=== PATIENT | female | born 1995 | race Caucasian/White ===

== ENCOUNTER 2023-03-19 00:55 | Emergency (ER) | payer BC, SELFPAY ==
--- NOTE | ~2023-03-19 | US_ITS ---
Pelvic ultrasound. Clinical History: First trimester , pelvic pain Technique: Realtime transabdominal and transvaginal scanning of the pelvis was performed. Color flow Doppler and Doppler spectral analysis were performed. Findings: The uterus is anteverted, and contains a probable early intrauterine gestational sac.. Aver age gestational sac diameter of 6 mm corresponds to an estimated gestational age of 5 weeks 2 days. P robable yolk sac present, without definite pole at this time. The right ovary measures 4.5 x 2.0 x 2.0 cm. No significant right ovarian or adnexal mass is seen. The left ovary measures 4.0 x 1.3 x 1.4 cm. No significant left ovarian or adnexal mass is seen. There is no evidence of free fluid in the cul de sac. Impression: Early intrauterine gestational sac, with estimated gestational age of 5 weeks 2 days based on average sac diameter. Yolk sac present without visible pole, commensurate with the early gestational a ge. Reviewed, dictated and finalized at location . INSPECTION AND REPAIR MANAGER Impression: Early intrauterine gestational sac, with estimated gestational age of 5 weeks 2 days based on average sac diameter. Yolk sac present without visible josue e, commensurate with the early gestational age.
[2023-03-19 00:57] VITALS: BP 132/90; PULSE 88; RESP 15; TEMP 36.6; O2SAT 98
[2023-03-19 05:01] LABS: Basophils Percent Auto 0.4 % (0.2-1.2); Eosinophils Absolute Auto 0.4 K/mm3 (0-0.3); Eosinophils Percent Auto 4.3 % (0-4.4); Hematocrit 42.7 % (37.0-47.0); Immature Granulocyte Absolute 0.05 K/mm3 (0.00-0.031); Immature Granulocyte Percent A 0.6 % (0-0.5); Lymphocytes Absolute Auto 2.71 K/mm3 (0.9-3.2); Lymphocytes Percent Auto 30.1 % (18.3-44.2); Mean Corpuscular HGB Conc 32.8 g/dl (32-36); Mean Corpuscular Hemoglobin 30.5 pg (26-34); Monocytes Absolute Auto 0.8 K/mm3 (0.1-0.6); Monocytes Percent Auto 9.2 % (2.6-8.5); Neutrophils Percent Auto 55.4 % (45.5-73.1); Platelet Count Result 332 k/mm3 (150-375); Red Blood Count 4.59 M/mm3 (4.2-5.4); Red Cell Distribution Width 12.9 % (11.5-14.5)
[2023-03-19 05:11] LABS: Alanine Aminotransferase 23 U/L (6-35); Alkaline Phosphatase 62 U/L (38-126); Anion Gap 7 mmol/L (8-16); Aspartate Amino Transferase 23 U/L (14-36); Bilirubin,Total 0.3 mg/dL (0.2-1.3); Blood Urea Nitrogen 14 mg/dL (7-17); Calcium 9.4 mg/dL (8.4-10.2); Carbon Dioxide 27 mmol/L (22-30); Chloride 104 mmol/L (98-107); Estimated CRCL calculation 124 ml/min; Estimated Glomerular Filt Rate > 60; Glucose 69 mg/dL (65-110); Potassium 4.5 mmol/L (3.4-5.0); Sodium 138 mmol/L (137-145)
[2023-03-19 05:14] LABS: Appearance Urine Cloudy (Clear); Bacteria Urine 1+ /hpf; Bilirubin Urine Negative (Negative); Blood Urine 2+ (Negative); Color Urine Yellow (Yellow); Glucose Urine UA Negative (Negative); Ketones Urine Negative (Negative); Leukocyte Esterase Ur Negative LEU/UL (Negative); Nitrate Urine Negative (Negative); Non Pathogenic Casts 0-2; Protein Urine Negative (Negative); RBC Urine 0-2 /hpf (0-2); Squamous Epithelial Cell Urine Moderate /hpf (Few); Urobilinogen Urine 0.2 mg/dL (<2.0); pH Urine 5.5 (5.0-9.0)
[2023-03-19 05:20] LABS: Add Urine Microscopic? YES
--- NOTE | 2023-03-19 05:23 | ED.GENADULT ---
HPI - General Adult General Chief complaint: Vaginal Bleeding Stated complaint: bleeding-8 weeks Time Seen by Provider: 03/19/23 04:18 History of Present Illness HPI narrative: patient is a 27-year-old female who presents emergency department with chief complaint of vaginal bleeding. Patient reports that her last wrist. Was in December and reports that she recently had a positive test and reports that tonight she knows she had some spotting whenever she went to the bathroom. Also reports it is cramping in her abdomen Related Data Allergies Allergy/AdvReac Type Severity Reaction Status Date / Time No Known Drug Allergies Allergy Unknown Other Verified 03/19/23 01:02 Review of Systems Review of Systems: A 10 system review of systems was completed on the patient and is negative except for what is stated in the HPI. Nursing and ancillary documentation was reviewed. Exam Narrative: GENERAL: Well-appearing, well-nourished, and in no acute distress. HEAD: Normocephalic, atraumatic. EYES: PERRLA and EOMI. ENT: Nares clear, no rhinorrhea or epistaxis. Mucous membranes moist. NECK: Supple. CHEST: Clear to auscultation. No respiratory distress. HEART: Regular rate and rhythm. No murmur heard. Normal peripheral pulses. ABDOMEN: Soft, nontender, nondistended, normal active bowel sounds. EXTREMITIES: Normal range of motion. No edema. SKIN: Warm, dry, no rash. NEURO: No focal deficits. Alert and oriented x3. PSYCH: Normal mood and affect. Course Vital Signs Vital signs: Vital Signs Temperature 97.9 F 03/19/23 00:57 Pulse Rate 88 03/19/23 00:57 Respiratory Rate 15 03/19/23 00:57 Blood Pressure 132/90 03/19/23 00:57 Pulse Oximetry 98 03/19/23 00:57 Oxygen Delivery Room Air 03/19/23 00:57 Temperature 97.9 F 03/19/23 00:57 Pulse Rate 79 03/19/23 05:46 Respiratory Rate 18 03/19/23 05:46 Blood Pressure 113/79 03/19/23 05:46 Pulse Oximetry 99 03/19/23 05:46 Oxygen Delivery Room Air 03/19/23 00:57 Medical Decision Making Vital Signs Vital Signs: Vital Signs Temperature 97.9 F 03/19/23 00:57 Pulse Rate 88 03/19/23 00:57 Respiratory Rate 15 03/19/23 00:57 Blood Pressure 132/90 03/19/23 00:57 Pulse Oximetry 98 03/19/23 00:57 Oxygen Delivery Room Air 03/19/23 00:57 Temperature 97.9 F 03/19/23 00:57 Pulse Rate 79 03/19/23 05:46 Respiratory Rate 18 03/19/23 05:46 Blood Pressure 113/79 03/19/23 05:46 Pulse Oximetry 99 03/19/23 05:46 Oxygen Delivery Room Air 03/19/23 00:57 Lab Data 03/19/23 04:55 03/19/23 04:55 Labs: Lab Results 03/19/23 03/19/23 Range/Units 04:55 04:57 WBC 9.0 (4.5-10.0) K/mm3 RBC 4.59 (4.2-5.4) M/mm3 Hgb 14.0 (12.0-15.0) g/dL Hct 42.7 (37.0-47.0) % MCV 93.0 (80-100) fl MCH 30.5 (26-34) pg MCHC 32.8 (32-36) g/dl RDW 12.9 (11.5-14.5) % Plt Count 332 (150-375) k/mm3 MPV 9.0 (7.4-10.4) fl Immature Gran % (Auto) 0.6 H (0-0.5) % Neut % (Auto) 55.4 (45.5-73.1) % Lymph % (Auto) 30.1 (18.3-44.2) % [place] % (Auto) 9.2 H (2.6-8.5) % Eos % (Auto) 4.3 (0-4.4) % Baso % (Auto) 0.4 (0.2-1.2) % Lymph # (Auto) 2.71 (0.9-3.2) K/mm3 [place] # (Auto) 0.8 H (0.1-0.6) K/mm3 Eos # (Auto) 0.4 H (0-0.3) K/mm3 Baso # (Auto) 0.0 (0.0-0.1) K/mm3 Abs Immat Gran (auto) 0.05 H (0.00-0.031) K/mm3 Absolute Neuts (auto) 5.0 (1.3-6.7) K/mm3 Absolute Nucleated RBC 0.0 (0.0-0.012) K/mm3 Nucleated RBC % 0.0 (0.0-0.2) % Sodium 138 (137-145) mmol/L Potassium 4.5 (3.4-5.0) mmol/L Chloride 104 (98-107) mmol/L Carbon Dioxide 27 (22-30) mmol/L Anion Gap 7 L (8-16) mmol/L BUN 14 (7-17) mg/dL Creatinine 0.70 (0.7-1.0) mg/dL Estim Creat Clear Calc 124 ml/min Estimated GFR > 60 (59 - ) Glucose 69 (65-110) mg/dL Calcium 9.4 (8.4-10.2) mg/dL Total Bilir
[2023-03-19 05:46] VITALS: BP 113/79; PULSE 79; RESP 18; O2SAT 99
[2023-03-19] MEDS: CEPHALEXIN 500 MG CAPSULE PO (07:58)
[2023-03-19 08:31] VITALS: BP 136/74; PULSE 84; RESP 16; O2SAT 99
== END 2023-03-19 08:34 | disposition home or self-care (01) ==
PROVIDERS: Emergency Medicine; Emergency Provider Student in an Organized Health Care Education/Training Program
DX: O20.0 Threatened abortion (principal); Z3A.08 8 weeks gestation of pregnancy; R82.71 Bacteriuria
CPT/HCPCS: 36415; 76801; 76817; 80053; 81001; 81025; 84702; 85025; 85461; 86850; 86900; 86901; 87086; 87088; 99284; A9270

== ENCOUNTER 2023-04-03 14:37 | Outpatient (CLI) | payer BC, SELFPAY ==
--- NOTE | ~2023-04-03 | XR_ITS ---
XR chest 2V DATE: 04/03/2023 15:06 INDICATION: Bilateral wheezing TECHNIQUE: PA and lateral views COMPARISON: None FINDINGS: Normal heart size. No hilar or mediastinal enlargement. No pulmonary infiltrate or consolid ation, pleural effusion or pulmonary vascular congestion or pneumothorax is detected. Included skelet al structures are unremarkable. IMPRESSION: No active cardiopulmonary disease Reviewed, dictated and finalized at location B. OSAL DIRECTOR
== END 2023-04-03 14:38 ==
LOC: MICIMG 14:39
PROVIDERS: PCP Advanced Practice Midwife; Visit Provider Advanced Practice Midwife
DX: R06.2 Wheezing (principal)
CPT/HCPCS: 71046

== ENCOUNTER 2023-10-25 10:25 | Outpatient (CLI) | payer BC, SELFPAY ==
[2023-10-25 10:37] VITALS: BMI 39.2
[2023-10-25 10:49] VITALS: BP 145/87; PULSE 87
[2023-10-25 11:00] VITALS: BP 146/89; PULSE 91
[2023-10-25 11:02] LABS: Basophils Absolute Auto 0.1 K/mm3 (0.0-0.1); Basophils Percent Auto 0.5 % (0.2-1.2); Eosinophils Absolute Auto 0.2 K/mm3 (0-0.3); Hematocrit 32.3 % (37.0-47.0); Hemoglobin 10.8 g/dL (12.0-15.0); Immature Granulocyte Absolute 0.19 K/mm3 (0.00-0.031); Lymphocytes Absolute Auto 1.78 K/mm3 (0.9-3.2); Lymphocytes Percent Auto 18.4 % (18.3-44.2); Mean Corpuscular HGB Conc 33.4 g/dl (32-36); Mean Corpuscular Hemoglobin 31.8 pg (26-34); Monocytes Absolute Auto 0.9 K/mm3 (0.1-0.6); Monocytes Percent Auto 9.7 % (2.6-8.5); Neutrophils Absolute Auto 6.5 K/mm3 (1.3-6.7); Neutrophils Percent Auto 67.4 % (45.5-73.1); Platelet Count Result 229 k/mm3 (150-375); White Blood Count 9.7 K/mm3 (4.5-10.0)
[2023-10-25 11:13] LABS: Alanine Aminotransferase 21 U/L (6-35); Albumin Level 3.5 g/dL (3.5-5.1); Alkaline Phosphatase 88 U/L (38-126); Anion Gap 8 mmol/L (4-12); Aspartate Amino Transferase 28 U/L (14-36); Bilirubin,Total 0.3 mg/dL (0.2-1.3); Blood Urea Nitrogen 10 mg/dL (7-17); Calcium 9.8 mg/dL (8.4-10.2); Carbon Dioxide 27 mmol/L (22-30); Chloride 102 mmol/L (98-107); Estimated Glomerular Filt Rate > 60; Glucose 84 mg/dL (65-110); Potassium 3.5 mmol/L (3.4-5.0); Sodium 137 mmol/L (137-145); Uric Acid 5.8 mg/dL (2.5-7.5)
[2023-10-25 11:15] VITALS: BP 140/79; BP 146/89; PULSE 87; PULSE 89
[2023-10-25 11:34] LABS: Appearance Urine Clear (Clear); Bacteria Urine None Seen /hpf; Bilirubin Urine Negative (Negative); Blood Urine Negative (Negative); Color Urine Yellow (Yellow); Glucose Urine UA Negative (Negative); Ketones Urine Negative (Negative); Leukocyte Esterase Ur Trace LEU/UL (Negative); Nitrate Urine Negative (Negative); Non Pathogenic Casts 0-2; Protein Urine Negative (Negative); RBC Urine 0-2 /hpf (0-2); Specific Grav Ur 1.005 (1.001-1.035); Squamous Epithelial Cell Urine Occasional /hpf (Few); Urobilinogen Urine 0.2 mg/dL (<2.0); WBC Urine 0-5 /hpf (0-3)
[2023-10-25 11:39] LABS: Add Urine Microscopic? YES
[2023-10-25 11:47] LABS: Creatinine Urine 30.1 mg/dL; Total Protein Urine Random 22 mg/dL; Ur Ttl Prot Creatinine Ratio 0.73 mg/mg (0-0.20)
--- NOTE | 2023-10-25 11:53 | PC.NURSE ---
shaquille Schaefer CNM reported BP and PIH lab result. induction was scheduled on saturday.
== END 2023-10-25 12:00 | disposition home or self-care (01) ==
LOC: ANHOBOP 10:28 → ANHOBPP 10:28
PROVIDERS: Visit Provider Advanced Practice Midwife
DX: O13.9 Gestational [pregnancy-induced] hypertension without significant proteinuria, unspecified trimester (principal); Z3A.00 Weeks of gestation of pregnancy not specified
CPT/HCPCS: 36415; 59025; 80053; 81001; 82570; 84156; 84550; 85025; 99199

== ENCOUNTER 2023-10-28 16:51 | Inpatient (IN) | payer BC, SELFPAY ==
[2023-10-28] VITALS (106 sets, daily range): BP systolic 100–158; BP diastolic 56–101; PULSE 68–104; TEMP 36.8–37.1; O2SAT 96–100; BMI 40.7
[2023-10-28 17:40] LABS: Basophils Percent Auto 0.3 % (0.2-1.2); Eosinophils Absolute Auto 0.2 K/mm3 (0-0.3); Eosinophils Percent Auto 2.4 % (0-4.4); Hemoglobin 10.9 g/dL (12.0-15.0); Immature Granulocyte Percent A 2.1 % (0-0.5); Mean Corpuscular HGB Conc 34.1 g/dl (32-36); Mean Corpuscular Hemoglobin 32.1 pg (26-34); Mean Corpuscular Volume 94.1 fl (80-100); Mean Platelet Volume 10.5 fl (7.4-10.4); Monocytes Absolute Auto 0.8 K/mm3 (0.1-0.6); Monocytes Percent Auto 8.4 % (2.6-8.5); Neutrophils Absolute Auto 6.4 K/mm3 (1.3-6.7); Neutrophils Percent Auto 67.8 % (45.5-73.1); Platelet Count Result 225 k/mm3 (150-375); Red Cell Distribution Width 13.2 % (11.5-14.5); White Blood Count 9.5 K/mm3 (4.5-10.0)
[2023-10-28 17:47] LABS: Uric Acid 6.2 mg/dL (2.5-7.5)
--- NOTE | 2023-10-28 17:48 | LDADM ---
This patient, Lisa Herbert, was admitted to Labor/Delivery/Recovery 104 on 10/28/23 at 16:51. Plans for labor, pain management and were discussed with patient. Patient/family oriented to hospital policies and general routines including ID bracelet, bed and alarms, visiting hours, pain management, procedures, bathroom and other care routines, personal items, smoking policy, room service/diet and guest tray routines, security routines, and visiting hours. Patient/Family are encouraged to report perceived risks to care and to ask questions if they do not understand what they are told or what they should do. See OBIX for further documentation.
[2023-10-28 17:49] LABS: Alanine Aminotransferase 22 U/L (6-35); Albumin Level 3.3 g/dL (3.5-5.1); Alkaline Phosphatase 85 U/L (38-126); Anion Gap 11 mmol/L (4-12); Aspartate Amino Transferase 28 U/L (14-36); Bilirubin,Total 0.3 mg/dL (0.2-1.3); Blood Urea Nitrogen 9 mg/dL (7-17); Calcium 9.4 mg/dL (8.4-10.2); Carbon Dioxide 23 mmol/L (22-30); Chloride 101 mmol/L (98-107); Estimated Glomerular Filt Rate > 60; Glucose 113 mg/dL (65-110); Potassium 3.2 mmol/L (3.4-5.0); Sodium 135 mmol/L (137-145)
[2023-10-28 18:06] LABS: Rapid Plasma Reagin Non-Reactive (NonReactive)
[2023-10-28] MEDS: miSOPROStol 25 MCG TABLET 50 MCG BUCCAL ×2 (18:06→22:05)
[2023-10-28 18:35] LABS: HIV 1/2 Ab P24 Ag Result Negative (Negative)
[2023-10-28] MEDS: POTASSIUM CHLORIDE 20 MEQ ER TABLET 40 MEQ PO (19:03)
[2023-10-29] VITALS (363 sets, daily range): BP systolic 81–194; BP diastolic 41–123; PULSE 39–140; TEMP 36.4–37.1; O2SAT 84–100
[2023-10-29] MEDS: miSOPROStol 25 MCG TABLET 50 MCG BUCCAL ×2 (02:01→06:07)
--- NOTE | 2023-10-29 08:18 | PM.IMHP ---
H&P: HPI History of Present Illness Date/Time: 10/29/23 08:18 Chief Complaint: G 1 P0 at 37 weeks gestation.pt here for IOL for preeclampsia with out severe features. denies headache, visual changes, epigastric pain. has been complicated by hypothyroidism, obesity, circumvallate placenta, anemia, asthma. Review of Systems Review of Systems: All systems reviewed & are unremarkable except as noted in HPI and below PMFSH Social History Social History Smoking status: Former smoker Tobacco type: cigarettes Second hand tobacco smoke exposure: Yes Substance use: never Do You Feel Safe in your Home?: Yes Lack of Transportation: No Lack of Food: Never True Current Housing: I Do Not Have Housing Concerned About Future Housing: No Difficulty Paying Gas/Electric Bills: No Difficulty Paying for Meds: No Currently Unemployed: No Education: High School Diploma/GED Difficulty w/ Childcare or Family Care: No Spiritual care concerns: No Meds Home Medications and Allergies Home Medications Medication Instructions Recorded Confirmed Type vit no.95-ferrous 1 tablet PO DAILY #30 tabs 03/19/23 10/18/23 Rx fumarate 28 mg-folic acid 800 mcg tablet ( Multivitamins) docusate sodium 100 mg capsule 100 mg PO DAILY 10/18/23 10/18/23 History (Colace) ferrous sulfate 325 mg (65 mg 325 mg PO DAILY 10/18/23 10/18/23 History iron) tablet levothyroxine 25 mcg tablet 25 mcg PO DAILY 10/18/23 10/18/23 History Allergies Allergy/AdvReac Type Severity Reaction Status Date / Time No Known Drug Allergies Allergy Unknown Other Verified 10/28/23 17:44 Vital Signs Vital Signs - 24 hr 10/28/23 17:16 10/28/23 17:18 10/28/23 17:21 Temperature Pulse Rate 100 Blood Pressure 144/85 H Pulse Oximetry 97 98 Oxygen Delivery 10/28/23 17:26 10/28/23 17:29 10/28/23 17:31 Temperature Pulse Rate 100 Blood Pressure 143/76 H Pulse Oximetry 98 98 Oxygen Delivery 10/28/23 17:34 10/28/23 17:39 10/28/23 17:44 Temperature Pulse Rate Blood Pressure Pulse Oximetry 99 98 98 Oxygen Delivery 10/28/23 17:46 10/28/23 17:49 10/28/23 17:54 Temperature Pulse Rate 97 Blood Pressure 140/91 H Pulse Oximetry 98 98 Oxygen Delivery 10/28/23 17:59 10/28/23 18:01 10/28/23 18:04 Temperature Pulse Rate 91 Blood Pressure 146/87 H Pulse Oximetry 99 98 Oxygen Delivery 10/28/23 18:09 10/28/23 18:12 10/28/23 18:14 Temperature 36.8 C Pulse Rate Blood Pressure Pulse Oximetry 98 97 Oxygen Delivery 10/28/23 18:16 10/28/23 18:19 10/28/23 18:24 Temperature Pulse Rate 98 Blood Pressure 158/85 H Pulse Oximetry 98 98 Oxygen Delivery 10/28/23 18:29 10/28/23 18:31 10/28/23 18:32 Temperature Pulse Rate 93 89 Blood Pressure 133/74 Pulse Oximetry 98 Oxygen Delivery 10/28/23 18:34 10/28/23 18:35 10/28/23 18:39 Temperature Pulse Rate 92 Blood Pressure 133/86 Pulse Oximetry 98 99 Oxygen Delivery 10/28/23 18:44 10/28/23 18:45 10/28/23 18:49 Temperature Pulse Rate 91 Blood Pressure 124/80 Pulse Oximetry 98 100 Oxygen Delivery 10/28/23 18:54 10/28/23 18:59 10/28/23 19:00 Temperature Pulse Rate 91 Blood Pressure 136/86 Pulse Oximetry 99 98 Oxygen Delivery 10/28/23 19:04 10/28/23 19:09 10/28/23 19:15 Temperature Pulse Rate Blood Pressure Pulse Oximetry 99 98 99 Oxygen Delivery 10/28/23 19:20 10/28/23 19:21 10/28/23 19:26 Temperature Pulse Rate Blood Pressure Pulse Oximetry 99 99 98 Oxygen Delivery 10/28/23 19:31 10/28/23 19:36 10/28/23 19:41 Temperature Pulse Rate 87 Blood Pressure 140/84 Pulse Oximetry 98 98 98 Oxygen Delivery 10/28/23 19:46 10/28/23 19:51 10/28/23 19:56 Temperature Pulse Rate 87 Bloo
[2023-10-29] MEDS: LACTATED RINGERS 1,000 ML 125 ML IV CONT ×3 (08:19→15:58)
--- NOTE | 2023-10-29 09:07 | WPDANESEPPF ---
Anes - Initial Pre Proc Eval Procedure: labor epidural Date/Time: 10/29/23 09:07 Surgeon: Lance Henderson MD Pre Op Diagnosis: labor pain Pre Op Diagnosis: IOL Patient Data Age: 28 Gender: F Height: 1.7 m Weight: 118 kg Last Vital Signs Temp 36.6 C 10/29/23 08:22 Pulse 79 10/29/23 09:01 BP 142/89 H 10/29/23 09:01 Pulse Ox 98 10/29/23 09:02 O2 Del Method Room Air 10/28/23 17:45 Allergies Allergy/AdvReac Type Severity Reaction Status Date / Time No Known Drug Allergies Allergy Unknown Other Verified 10/28/23 17:44 Home Medications Medication Instructions Recorded Confirmed Type vit no.95-ferrous 1 tablet PO DAILY #30 tabs 03/19/23 10/18/23 Rx fumarate 28 mg-folic acid 800 mcg tablet ( Multivitamins) docusate sodium 100 mg capsule 100 mg PO DAILY 10/18/23 10/18/23 History (Colace) ferrous sulfate 325 mg (65 mg 325 mg PO DAILY 10/18/23 10/18/23 History iron) tablet levothyroxine 25 mcg tablet 25 mcg PO DAILY 10/18/23 10/18/23 History Laboratory Tests 10/28/23 10/28/23 17:12 17:27 WBC 9.5 K/mm3 (4.5-10.0) RBC 3.40 L M/mm3 (4.2-5.4) Hgb 10.9 L g/dL (12.0-15.0) Hct 32.0 L % (37.0-47.0) MCV 94.1 fl (80-100) MCH 32.1 pg (26-34) MCHC 34.1 g/dl (32-36) RDW 13.2 % (11.5-14.5) Plt Count 225 k/mm3 (150-375) MPV 10.5 H fl (7.4-10.4) Immature Gran % (Auto) 2.1 H % (0-0.5) Neut % (Auto) 67.8 % (45.5-73.1) Lymph % (Auto) 19.0 % (18.3-44.2) [place] % (Auto) 8.4 % (2.6-8.5) Eos % (Auto) 2.4 % (0-4.4) Baso % (Auto) 0.3 % (0.2-1.2) Lymph # (Auto) 1.80 K/mm3 (0.9-3.2) [place] # (Auto) 0.8 H K/mm3 (0.1-0.6) Eos # (Auto) 0.2 K/mm3 (0-0.3) Baso # (Auto) 0.0 K/mm3 (0.0-0.1) Abs Immat Gran (auto) 0.20 H K/mm3 (0.00-0.031) Absolute Neuts (auto) 6.4 K/mm3 (1.3-6.7) Absolute Nucleated RBC 0.000 K/mm3 (0.0-0.012) Nucleated RBC % 0.0 % (0.0-0.2) Sodium 135 L mmol/L (137-145) Potassium 3.2 L mmol/L (3.4-5.0) Chloride 101 mmol/L (98-107) Carbon Dioxide 23 mmol/L (22-30) Anion Gap 11 mmol/L (4-12) BUN 9 mg/dL (7-17) Creatinine 1.00 mg/dL (0.7-1.0) Estim Creat Clear Calc Not Reportable Estimated GFR > 60 (59 - ) Glucose 113 H mg/dL (65-110) Uric Acid 6.2 mg/dL (2.5-7.5) Calcium 9.4 mg/dL (8.4-10.2) Total Bilirubin 0.3 mg/dL (0.2-1.3) AST 28 U/L (14-36) ALT 22 U/L (6-35) Alkaline Phosphatase 85 U/L (38-126) Total Protein 6.0 L g/dL (6.3-8.2) Albumin 3.3 L g/dL (3.5-5.1) RPR Non-reactive (NonReactive) HIV 1&2 Ab/P24 Ag 4thGn Negative (Negative) Blood Type A Positive Antibody Screen Negative Patient hx anesthesia problems: none Family hx anesthesia problems: none Results Review: All pre-operative results and documents have been reviewed as part of the pre-operative evaluation. [facility] Past Medical History Medical History (Updated 10/29/23 @ 09:07 by Lester Dodd DO) Asthma Hypothyroid Social History Social History Smoking status: Former smoker Tobacco type: cigarettes Second hand tobacco smoke exposure: Yes Substance use: never Do You Feel Safe in your Home?: Yes Lack of Transportation: No Lack of Food: Never True Current Housing: I Do Not Have Housing Concerned About Future Housing: No Difficulty Paying Gas/Electric Bills: No Difficulty Paying for Meds: No Currently Unemployed: No Education: High School Diploma/GED Difficulty w/ Childcare or Family Care: No Spiritual care concerns: No Anes - Eval Final PreProcedure Day of Procedure 10/29/23 09:07
[2023-10-29] MEDS: OXYTOCIN 30 UNITS/NS 500 ML 30 UNITS/500 ML BAG IV CONT (18:29)
[2023-10-29] MEDS: ONDANSETRON INJ 4 MG/2 ML VIAL IV PUSH (20:31)
[2023-10-29] MEDS: SODIUM CHLORIDE 0.9% IV 300 ML 600 ML I-UTERINE (21:33)
[2023-10-29] MEDS: CALCIUM CARBONATE (TUMS) 500 MG (200 MG ELEMENTAL) 400 MG PO (21:40)
[2023-10-29] MEDS: OXYTOCIN 30 UNITS/NS 500 ML 30 UNITS/500 ML BAG 999 UNITS IV CONT (22:18)
--- NOTE | 2023-10-29 22:25 | PM.OBPRVD ---
OB - Vaginal Delivery Note Procedure Delivery date: 10/29/23 Events: Preeclampsia w/o severe features Induction method: AROM, Per Misoprostol Protocol and Per Pitocin Protocol Delivery monitor: Internal FHT and Internal Uterine Route of delivery: Episiotomy description: None Laceration Description: None Specimen: Yes Quantitative Blood Loss (ml): 200 Anesthesia type: Epidural Disposition: Floor Complications: No immediate complications Baby Date of : 10/29/23 Time of : 22:17 Gestational Age by Date: 37 gender: Male Weight (pounds): 6 Weight (ounces): 2 presentation: vertex position: Left Occiput Anterior Placenta delivery description: Spontaneous Cord Vessel Description: 3 Vessels, Nuchal Cord (x1), Loose, Reduced and Around Body (x2) score one minute: 9 score five minutes: 9 Narrative: baby to warmer, mother and baby in stable condition
[2023-10-29] MEDS: OXYTOCIN 30 UNITS/NS 500 ML 30 UNITS/500 ML BAG 125 UNITS IV CONT (22:48)
[2023-10-30] VITALS (10 sets, daily range): BP systolic 137–154; BP diastolic 84–99; PULSE 83–104; RESP 16–18; TEMP 36.5–37.6; O2SAT 95–99
[2023-10-30] MEDS: BENZOCAINE 20% AER SPR (*SP) 56 GM CAN 1 SPRAY TOPICAL (01:09)
[2023-10-30] MEDS: WITCH HAZEL 40 PADS 1 PAD TOPICAL (01:10)
--- NOTE | 2023-10-30 04:40 | OBPPTRN ---
Patient transferred to post room #[id number] (wheelchair at [phone] ). Support person present. Oriented to unit, room, information board, rooming in, admission packet and security measures. Patient verbalizes understanding.
[2023-10-30 04:41] LABS: Hemoglobin 10.2 g/dL (12.0-15.0)
--- NOTE | 2023-10-30 07:37 | PM.OBPNVD ---
OB - PN: Subj Subjective Date/time seen: 10/30/23 07:37 Interval history: pp day 1 doing well baby doing well OB - PN: Obj Data Labs 10/30/23 04:22 10/28/23 17:27 Labs: Laboratory Results - last 24 hr 10/30/23 04:22 Hgb 10.2 L Hct 31.0 L OB - PN A/P Plan day: 1 Plan: routine care Time Spent With Patient Time: Total time spent is greater than 50% in coordination of care (as documented) at patient's floor/unit and/or counseling patient: Review of Systems Review of Systems: All systems reviewed & are unremarkable except as noted in HPI and below Exam Const: General: cooperative and healthy appearing Chest: Chest palpation & inspection: normal inspection of the chest Resp: Effort & Inspection: normal respiratory effort Cardio: Rate: regular rate Rhythm: regular rhythm Skin: General skin exam: normal color Neuro: General: patient oriented x3 Extrem: General: normal to inspection
--- NOTE | 2023-10-30 08:15 | PC.NURSE ---
Primary RN requested assistance for patient who is trying to breastfeed. Patient had baby latched to the left breast with the nipple shield. Baby is 37 weeks. He was sleepy so we tried to stimulate him to wake up and suck. Mother states that she could feel him sucking but it did not appear he was giving much effort. Mother states he had already fed for 15 minutes on the right breast. She has been using the nipple shield at every feeding. Patient was educated on the need to pump if using the shield. Mother has her own pump. Mother is going to burp baby and then we will set up her pump and fit her flange size. Mother agrees with this plan.
[2023-10-30] MEDS: MULTIVIT/MIN/PREN/FOL AC/IRON TABLET 1 TAB PO (08:27)
[2023-10-30] MEDS: LEVOTHYROXINE SODIUM 25 MCG TABLET PO (08:27)
--- NOTE | 2023-10-30 08:28 | WPDANLDPN2 ---
Anes-Prog Note L&D Date/Time: 10/30/23 08:28 Comfortable throughout: labor and delivery Neuraxial method: epidural Epidural/Spinal procedure site: clean & non-tender Neuro status: Neuro function grossly intact. Cardiovascular status: normal Respiratory status: normal Airway patency: baseline Mental status: baseline Post-Op hydration status: normal Vital Signs: Last Vital Signs Temp 37.2 C 10/30/23 04:00 Pulse 98 10/30/23 04:00 Resp 17 10/30/23 04:00 BP 145/93 H 10/30/23 04:00 Pulse Ox 98 10/30/23 04:00 O2 Del Method Room Air 10/30/23 04:00 Pain score (VAS): 0/10 I/O: Intake & Output 10/29/23 10/30/23 10/30/23 23:59 07:59 15:59 Intake Total 1000 Output Total 1500 Balance -500 Post-procedural complaints: none Patient feedback: Patient satisfied with anesthetic care.
[2023-10-30 08:44] LABS: Basophils Percent Auto 0.3 % (0.2-1.2); Eosinophils Absolute Auto 0.3 K/mm3 (0-0.3); Hematocrit 32.1 % (37.0-47.0); Immature Granulocyte Absolute 0.16 K/mm3 (0.00-0.031); Immature Granulocyte Percent A 1.1 % (0-0.5); Lymphocytes Absolute Auto 1.81 K/mm3 (0.9-3.2); Lymphocytes Percent Auto 12.7 % (18.3-44.2); Mean Corpuscular HGB Conc 34.3 g/dl (32-36); Mean Corpuscular Hemoglobin 32.6 pg (26-34); Mean Corpuscular Volume 95.3 fl (80-100); Mean Platelet Volume 10.2 fl (7.4-10.4); Monocytes Absolute Auto 1.1 K/mm3 (0.1-0.6); Neutrophils Absolute Auto 10.8 K/mm3 (1.3-6.7); Neutrophils Percent Auto 75.9 % (45.5-73.1); Platelet Count Result 217 k/mm3 (150-375); Red Blood Count 3.37 M/mm3 (4.2-5.4); Red Cell Distribution Width 13.3 % (11.5-14.5); White Blood Count 14.3 K/mm3 (4.5-10.0)
[2023-10-30 08:57] LABS: Alanine Aminotransferase 21 U/L (6-35); Albumin Level 3.2 g/dL (3.5-5.1); Alkaline Phosphatase 88 U/L (38-126); Anion Gap 6 mmol/L (4-12); Aspartate Amino Transferase 31 U/L (14-36); Bilirubin,Total 0.5 mg/dL (0.2-1.3); Blood Urea Nitrogen 9 mg/dL (7-17); Calcium 9.2 mg/dL (8.4-10.2); Carbon Dioxide 27 mmol/L (22-30); Chloride 103 mmol/L (98-107); Estimated CRCL calculation 97 ml/min; Estimated Glomerular Filt Rate > 60; Glucose 76 mg/dL (65-110); Potassium 3.5 mmol/L (3.4-5.0); Sodium 136 mmol/L (137-145); Uric Acid 5.7 mg/dL (2.5-7.5)
--- NOTE | 2023-10-30 10:55 | PC.NURSE ---
0830: Set up mother with her own pump. The pump comes with a 25mm flange and that fit mother well. We looked through the user guide and found the recommended instructions for pump phases. Recommended mother pump for 15 minutes after each feeding since she is using the nipple shield. We discussed cleaning her pump parts, breastmilk use and storage. We also discussed milk production. Mother had a few drops that she placed in baby's mouth. 1055: Mother called out for feeding assistance. She had the nipple shield applied correctly but infant would not open his mouth to latch. We attempted to wake infant by bringing him away from mom and stimulating him. He cried a bit and again we tried to latch him. His mouth is very tight and he does not like to open. We did get the nipple shield into his mouth but he did not suck. We tried for about 10 minutes and infant gave no effort. Encouraged mother to place baby skin to skin for 15 to 20 minutes and watch for feeding cues. If does not wake up to feed after being skin to skin, suggested mother pump and give anything she gets. We also discussed that baby is 37 weeks and sometimes they will appear to latch and suck well but may not be effective transferring milk. Mother verbalized understanding. Reported to Primary RN.
--- NOTE | 2023-10-30 12:30 | PC.NURSE ---
Patient called out for assistance. had not breastfed so she pumped and got 2ml of colostrum. RN garry it up in a syringe and place it in a bottle nipple. Baby sucked the colostrum from the nipple. Discussed with mom that this is adequate for this feeding time but that if infant does not wake and feed well at the next feeding, we should discuss beginning a feeding plan with supplementation. Infant is 37 weeks and mother has hypothyroid, PCOS, anemia, and preeclampsia. Mother agrees with this course of action. She desires to exclusively breastfeed but will supplement if needed. Reported to Primary RN.
--- NOTE | 2023-10-30 14:40 | PC.NURSE ---
Mother called out because would not nurse again at this feeding. She was able to pump 1ml of colostrum. We put the colostrum in a volufeeder and added 15 ml of Enfamil. Mother was instructed to feed all of the bottle, burping at least once in the middle and once at the end. She was also instructed on use and disposal of the ready to feed formula bottles. Mother verbalizes understanding and will call out if she needs further assistance. Reported to Primary RN.
[2023-10-31 03:40] VITALS: BP 124/74; PULSE 79
[2023-10-31 07:40] VITALS: BP 128/70; PULSE 77; RESP 16; TEMP 36.6; O2SAT 99
[2023-10-31] MEDS: MULTIVIT/MIN/PREN/FOL AC/IRON TABLET 1 TAB PO (07:47)
[2023-10-31] MEDS: LEVOTHYROXINE SODIUM 25 MCG TABLET PO (07:47)
--- NOTE | 2023-10-31 08:13 | P.DS_ITS ---
DS: Admitting Diagnosis Discharge Date October 31, 2023 Admitting Diagnosis Term DS: Discharge Diagnosis Discharge Diagnosis (1) Term delivered: Code(s): O80 - Encounter for full-term uncomplicated delivery Status: Acute OB - DS: Summary OB Procedures : None OB Procedures Intrapartum: Spontaneous Vag Delivery OB Procedures: : None Peripartum Data Laceration Description: None Episiotomy description: None Time Spent with Patient Time attestation: Total time spent providing and/or coordinating discharge services: DS: Data Data Completed and Pending Pending studies at discharge: Pending at discharge 10/29/23 23:46 Surgical [PTH] Routine Labs on day of discharge: Labs from last 24 hours 10/30/23 08:34 WBC 14.3 H RBC 3.37 L Hgb 11.0 L Hct 32.1 L MCV 95.3 MCH 32.6 MCHC 34.3 RDW 13.3 Plt Count 217 MPV 10.2 Immature Gran % (Auto) 1.1 H Neut % (Auto) 75.9 H Lymph % (Auto) 12.7 L [place] % (Auto) 8.0 Eos % (Auto) 2.0 Baso % (Auto) 0.3 Lymph # (Auto) 1.81 [place] # (Auto) 1.1 H Eos # (Auto) 0.3 Baso # (Auto) 0.0 Abs Immat Gran (auto) 0.16 H Absolute Neuts (auto) 10.8 H Absolute Nucleated RBC 0.000 Nucleated RBC % 0.0 Sodium 136 L Potassium 3.5 Chloride 103 Carbon Dioxide 27 Anion Gap 6 BUN 9 Creatinine 1.00 Estim Creat Clear Calc 97 Estimated GFR > 60 Glucose 76 Uric Acid 5.7 Calcium 9.2 Total Bilirubin 0.5 AST 31 ALT 21 Alkaline Phosphatase 88 Total Protein 6.0 L Albumin 3.2 L Discharge Plan Discharge Discharging Clinician: Lance Henderson Patient Disposition: Home, Self-Care Activity: pelvic rest Diet: regular Patient Instructions: Antibiotic Form Stand Alone Forms: General Discharge Information Follow-up/Referrals: Lance Henderson MD [Physician] - Discharge Medications: Continued levothyroxine 25 mcg Tablet 25 mcg PO DAILY ferrous sulfate 325 mg (65 mg iron) Tablet 325 mg PO DAILY docusate sodium [Colace] 100 mg Capsule 100 mg PO DAILY PNV cmb#95-ferrous fumarate-FA [ Multivitamins] 28 mg iron- 800 mcg tablet 1 tablet PO DAILY Qty: 30 0RF Date of admission: 10/28/23 16:51 Primary Care Provider: SarahTito Admitting Provider: Lance Henderson Attending physician on admission: Lance Henderson Condition: Stable
--- NOTE | 2023-10-31 08:19 | PM.OBPNVD ---
OB - PN: Subj Subjective Date/time seen: 10/31/23 08:19 Interval history: pp day 1 doing well baby doing well Patient comments: no complaints, pain well controlled and tolerating diet OB - PN: Obj Data Labs 10/30/23 08:34 10/30/23 08:34 Labs: Laboratory Results - last 24 hr 10/30/23 08:34 WBC 14.3 H RBC 3.37 L Hgb 11.0 L Hct 32.1 L MCV 95.3 MCH 32.6 MCHC 34.3 RDW 13.3 Plt Count 217 MPV 10.2 Immature Gran % (Auto) 1.1 H Neut % (Auto) 75.9 H Lymph % (Auto) 12.7 L [place] % (Auto) 8.0 Eos % (Auto) 2.0 Baso % (Auto) 0.3 Lymph # (Auto) 1.81 [place] # (Auto) 1.1 H Eos # (Auto) 0.3 Baso # (Auto) 0.0 Abs Immat Gran (auto) 0.16 H Absolute Neuts (auto) 10.8 H Absolute Nucleated RBC 0.000 Nucleated RBC % 0.0 Sodium 136 L Potassium 3.5 Chloride 103 Carbon Dioxide 27 Anion Gap 6 BUN 9 Creatinine 1.00 Estim Creat Clear Calc 97 Estimated GFR > 60 Glucose 76 Uric Acid 5.7 Calcium 9.2 Total Bilirubin 0.5 AST 31 ALT 21 Alkaline Phosphatase 88 Total Protein 6.0 L Albumin 3.2 L OB - PN A/P Plan day: 2 Plan: routine care and discharge home Time Spent With Patient Time: Total time spent is greater than 50% in coordination of care (as documented) at patient's floor/unit and/or counseling patient: Exam Const: General: comfortable and no acute distress Resp: Effort & Inspection: normal respiratory effort Auscultation: no rales, no rhonchi and no wheezes Cardio: Rate: regular rate Heart sounds: no click, no murmurs and no rubs GI: GI Palp: Yes Soft to palpation and No Tenderness to palpation present (GI) Auscultation: normal bowel sounds Extrem: General: normal to inspection, no pedal edema and no calf tenderness
[2023-10-31 12:17] VITALS: BP 141/94; PULSE 85; RESP 18; TEMP 36.6; O2SAT 99
[2023-10-31 19:30] VITALS: BP 127/79; PULSE 73; RESP 18; TEMP 36.6
[2023-10-31 23:40] VITALS: BP 129/89; PULSE 71
[2023-11-01 04:35] VITALS: BP 128/85; PULSE 85
[2023-11-01] MEDS: DOCUSATE SODIUM 100 MG CAPSULE PO ×2 (04:35→09:02)
[2023-11-01] MEDS: LEVOTHYROXINE SODIUM 25 MCG TABLET PO (06:18)
--- NOTE | 2023-11-01 07:40 | PM.OBPNVD ---
OB - PN: Subj Subjective Date/time seen: 11/01/23 07:40 Interval history: pp day 3 doing well baby doing well OB - PN: Obj Data Labs 10/30/23 08:34 10/30/23 08:34 OB - PN A/P Plan day: 3 Plan: routine care and discharge home Time Spent With Patient Time: Total time spent is greater than 50% in coordination of care (as documented) at patient's floor/unit and/or counseling patient: Review of Systems Review of Systems: All systems reviewed & are unremarkable except as noted in HPI and below Exam Const: General: cooperative and healthy appearing Chest: Chest palpation & inspection: normal inspection of the chest Resp: Effort & Inspection: normal respiratory effort Cardio: Rate: regular rate Rhythm: regular rhythm Skin: General skin exam: normal color
--- NOTE | 2023-11-01 07:42 | PM.OBDSVD ---
DS: Admitting Diagnosis Discharge Date 11/01/23 Admitting Diagnosis IOL, preeclampsia DS: Discharge Diagnosis Discharge Diagnosis (1) Term delivered: Code(s): O80 - Encounter for full-term uncomplicated delivery Status: Acute OB - DS: Summary OB Procedures : None OB Procedures Intrapartum: Spontaneous Vag Delivery OB Procedures: : None Peripartum Data Laceration Description: None Episiotomy description: None Time Spent with Patient Time attestation: Total time spent providing and/or coordinating discharge services: DS: Data Data Completed and Pending Pending studies at discharge: Pending at discharge 10/29/23 23:46 Surgical [PTH] Routine Discharge Plan Discharge Attending physician on discharge: Lance Henderson Discharging Clinician: Marguerite Schaefer Patient Disposition: Home, Self-Care Activity: pelvic rest Diet: regular Patient Instructions: Antibiotic Form Stand Alone Forms: General Discharge Information Follow-up/Referrals: Lance Henderson MD [Physician] - Discharge Medications: Continued levothyroxine 25 mcg Tablet 25 mcg PO DAILY ferrous sulfate 325 mg (65 mg iron) Tablet 325 mg PO DAILY docusate sodium [Colace] 100 mg Capsule 100 mg PO DAILY PNV [id number] fumarate-FA [ Multivitamins] 28 mg iron- 800 mcg tablet 1 tablet PO DAILY Qty: 30 0RF Date of admission: 10/28/23 16:51 Primary Care Provider: Kin SmithTito Admitting Provider: Lance Henderson Attending physician on admission: Lance Henderson Condition: Stable
[2023-11-01 08:00] VITALS: BP 119/85; PULSE 88; RESP 18; TEMP 36.8; O2SAT 99
[2023-11-01] MEDS: TETANUS,DIPHTHERIA,AC PERTUSSIS ADULT (0.5 ML) BOOSTRIX IM (09:01)
[2023-11-01] MEDS: MULTIVIT/MIN/PREN/FOL AC/IRON TABLET 1 TAB PO (09:02)
--- NOTE | 2023-11-01 09:30 | PC.NURSE ---
Breast pump education provided. Instructions given on cleaning, care, usage, that there should be no pain, pumping schedule for milk production, collection, and storage of human milk. Patient was assessed for correct placement, flange size, to pump for comfort and nipple stretching/stimulation for adequate milk production every 3 hours (8 times in 24 hours) 1-2 times at night. Parents are encouraged to record the pumping schedule on the feeding sheet.?Mother voiced understanding of the education shared along with mom/baby guide and the pump measurement, flange fit handout for additional resource information. Patient confident with operating pump and will be discharged. Reported to the Primary RN.
[2023-11-04 11:22] VITALS: BP 140/92; PULSE 72; RESP 18; TEMP 37.1; O2SAT 100
--- NOTE | 2023-11-27 21:38 | P.PNOB_ITS ---
OB - Triage/Final Diagnosis Visit Information Comments/Additional reasons for admission: I have assessed the risk for this patient, Lisa Herbert, and determined that she would benefit from observation care. Evaluation Laboratory results: Laboratory Tests 10/28/23 10/28/23 10/30/23 17:12 17:27 04:22 WBC 9.5 RBC 3.40 L Hgb 10.9 L 10.2 L Hct 32.0 L 31.0 L MCV 94.1 MCH 32.1 MCHC 34.1 RDW 13.2 Plt Count 225 MPV 10.5 H Immature Gran % (Auto) 2.1 H Neut % (Auto) 67.8 Lymph % (Auto) 19.0 [place] % (Auto) 8.4 Eos % (Auto) 2.4 Baso % (Auto) 0.3 Lymph # (Auto) 1.80 [place] # (Auto) 0.8 H Eos # (Auto) 0.2 Baso # (Auto) 0.0 Abs Immat Gran (auto) 0.20 H Absolute Neuts (auto) 6.4 Absolute Nucleated RBC 0.000 Nucleated RBC % 0.0 Sodium 135 L Potassium 3.2 L Chloride 101 Carbon Dioxide 23 Anion Gap 11 BUN 9 Creatinine 1.00 Estim Creat Clear Calc Not Reportable Estimated GFR > 60 Glucose 113 H Uric Acid 6.2 Calcium 9.4 Total Bilirubin 0.3 AST 28 ALT 22 Alkaline Phosphatase 85 Total Protein 6.0 L Albumin 3.3 L RPR Non-reactive HIV 1&2 Ab/P24 Ag 4thGn Negative Blood Type A Positive Antibody Screen Negative 10/30/23 08:34 WBC 14.3 H RBC 3.37 L Hgb 11.0 L Hct 32.1 L MCV 95.3 MCH 32.6 MCHC 34.3 RDW 13.3 Plt Count 217 MPV 10.2 Immature Gran % (Auto) 1.1 H Neut % (Auto) 75.9 H Lymph % (Auto) 12.7 L [place] % (Auto) 8.0 Eos % (Auto) 2.0 Baso % (Auto) 0.3 Lymph # (Auto) 1.81 [place] # (Auto) 1.1 H Eos # (Auto) 0.3 Baso # (Auto) 0.0 Abs Immat Gran (auto) 0.16 H Absolute Neuts (auto) 10.8 H Absolute Nucleated RBC 0.000 Nucleated RBC % 0.0 Sodium 136 L Potassium 3.5 Chloride 103 Carbon Dioxide 27 Anion Gap 6 BUN 9 Creatinine 1.00 Estim Creat Clear Calc 97 Estimated GFR > 60 Glucose 76 Uric Acid 5.7 Calcium 9.2 Total Bilirubin 0.5 AST 31 ALT 21 Alkaline Phosphatase 88 Total Protein 6.0 L Albumin 3.2 L RPR HIV 1&2 Ab/P24 Ag 4thGn Blood Type Antibody Screen Final Diagnosis (1) Asthma: Code(s): J45.909 - Unspecified asthma, uncomplicated Status: Acute
== END 2023-11-01 09:42 | disposition home or self-care (01) | DRG 807 ==
LOC: ANHLDR 16:53 → ANHOB2 10-30 01:44
PROVIDERS: Admitting Provider Obstetrics & Gynecology; Referring Provider Advanced Practice Midwife; Visit Provider Obstetrics & Gynecology
DX: O14.94 Unspecified pre-eclampsia, complicating childbirth (principal); Z37.0 Single live birth; Z3A.37 37 weeks gestation of pregnancy; O69.82X0 Labor and delivery complicated by other cord entanglement, without compression, not applicable or unspecified; O99.284 Endocrine, nutritional and metabolic diseases complicating childbirth; E03.9 Hypothyroidism, unspecified; O99.214 Obesity complicating childbirth; O43.113 Circumvallate placenta, third trimester; O99.02 Anemia complicating childbirth; D64.9 Anemia, unspecified; O99.52 Diseases of the respiratory system complicating childbirth; J45.909 Unspecified asthma, uncomplicated
CPT/HCPCS: 36415; 80053; 84550; 85014; 85018; 85025; 86592; 86703; 86850; 86900; 86901; 88307; 90715; A9270; G0432; J2405; J2590; J2795; J7030; J7120